=== PATIENT | female | born 1940 | race Hispanic/Latino ===

== ENCOUNTER 2017-05-22 19:53 | Emergency (ER) | payer OTHER, MEDICARE ==
[~2017-05-22 19:53] MED LIST: ALBU8.5H8 IH; ASPI-1181 PO; DILT180C88 PO; MULT-1203 PO; NITR0.4T SL; OMEP20TA25 PO; SIMV40TA59 PO; SOLI5 PO; TIOT18CA3 IH
[2017-05-22 20:37] LABS: BASOPHILS % (AUTO) 2.8 % (0.0-5.0); EOSINOPHILS % (AUTO) 1.9 % (0.0-8.0); HEMATOCRIT 39.4 % (36-48); LYMPHOCYTES % (AUTO) 15.2 % (21.0-51.0); MEAN CORPUSCULAR HEMOGLOBIN 31.6 pg (27.0-33.0); MEAN CORPUSCULAR HGB CONC 34.4 g/dL (32.0-36.0); MEAN CORPUSCULAR VOLUME 91.9 fL (79-99); MONOCYTES % (AUTO) 7.3 % (3.0-13.0); NEUTROPHILS % (AUTO) 72.8 % (40.0-77.0); PLATELET COUNT (AUTO) 200 K/uL (130-400); RED BLOOD CELL COUNT(AUTO) 4.29 MIL/uL (4.00-5.50); RED CELL DISTRIBUTION WIDTH 14.2 % (11.0-15.5); WHITE BLOOD COUNT (AUTO) 6.3 K/uL (4.8-10.8)
[2017-05-22 20:41] LABS: APPEARANCE,URINE Clear (CLEAR); BILIRUBIN,URINE Negative (NEGATIVE); COLOR,URINE Yellow (YELLOW); GLUCOSE, URINE (UA) Negative (NEGATIVE); KETONES,URINE Negative (NEGATIVE); LEUKOCYTE ESTERASE ,URINE Negative (NEGATIVE); NITRATE,URINE Negative (NEGATIVE); OCCULT BLOOD,URINE Negative (NEGATIVE); PROTEIN,URINE Negative (NEGATIVE); UROBILINOGEN,URINE 0.2 mg/dL (0.2-1.0)
[2017-05-22] MEDS ORDERED: ACETAMINOPHEN EXTRA STRENGTH 500 MG TABLET ONE (20:42)
[2017-05-22 20:55] LABS: INR 1.01 (0.85-1.15); PARTIAL THROMBOPLASTIN TIME 25.2 SEC (26.3-35.5); PROTHROMBIN TIME 10.6 SEC (9.6-11.6)
[2017-05-22 20:59] LABS: CARBON DIOXIDE 27 mmol/L (21-32); CHLORIDE 98 mmol/L (101-111); GLOMERULAR FILTR. RATE CALC 57 mL/min (>60); GLUCOSE,RANDOM 111 mg/dL (70-105); POTASSIUM 4.3 mmol/L (3.5-5.1); SODIUM SERUM 134 mmol/L (136-145); UREA NITROGEN, BLOOD 11 mg/dL (7-18)
[2017-05-22] MEDS ORDERED: ALBUTEROL SULFATE 0.083% 2.5 MG/3 ML INH IH ONE (21:07)
[2017-05-22 21:13] LABS: ALANINE AMINOTRANSFERASE 16 U/L (12-78); ALBUMIN 3.6 g/dL (3.5-5.0); ASPARTATE AMINOTRANSFERASE 20 U/L (10-37); BILIRUBIN,TOTAL 0.3 mg/dL (0.2-1.0); CREATINE KINASE MB < 0.5 ng/mL (0.5-3.6); CREATINE KINASE, TOTAL 45 U/L (21-232); MYOGLOBIN 42 ng/mL (10-92); TOTAL PROTEIN, SERUM 8.3 g/dL (6.0-8.3); TROPONIN I < 0.04 ng/mL (0.00-0.06)
[2017-05-22] MEDS ORDERED: LEVOFLOXACIN 500 MG TABLET ONE (23:43)
== END 2017-05-22 23:57 | disposition home or self-care (01) ==
LOC: EDH 19:53
DX: J20.9 Acute bronchitis, unspecified (principal); R50.9 Fever, unspecified; E78.5 Hyperlipidemia, unspecified; I10 Essential (primary) hypertension; I25.10 Atherosclerotic heart disease of native coronary artery without angina pectoris; J45.909 Unspecified asthma, uncomplicated; R79.1 Abnormal coagulation profile; Z88.0 Allergy status to penicillin; Z90.49 Acquired absence of other specified parts of digestive tract; Z98.890 Other specified postprocedural states
CPT/HCPCS: 36415; 71045; 80053; 81003; 82550; 82553; 83605; 83874; 84484; 85025; 85610; 85730; 87040; 87088; 87186; 87804; 93005; 96360; 96361

== ENCOUNTER 2017-06-27 14:46 | Emergency (ER) | payer OTHER, MEDICARE ==
[2017-06-27 17:05] LABS: BASOPHILS % (AUTO) 0.5 % (0.0-5.0); EOSINOPHILS % (AUTO) 0.2 % (0.0-8.0); HEMATOCRIT 41.5 % (36-48); LYMPHOCYTES % (AUTO) 15.4 % (21.0-51.0); MEAN CORPUSCULAR HEMOGLOBIN 31.6 pg (27.0-33.0); MEAN CORPUSCULAR HGB CONC 34.3 g/dL (32.0-36.0); MEAN CORPUSCULAR VOLUME 92.2 fL (79-99); MONOCYTES % (AUTO) 6.8 % (3.0-13.0); NEUTROPHILS % (AUTO) 77.1 % (40.0-77.0); PLATELET COUNT (AUTO) 254 K/uL (130-400); RED CELL DISTRIBUTION WIDTH 14.8 % (11.0-15.5); WHITE BLOOD COUNT (AUTO) 12.4 K/uL (4.8-10.8)
[2017-06-27] MEDS ORDERED: ORPHENADRINE CITRATE 30 MG/ML ML ONE (17:09)
[2017-06-27 17:15] LABS: CREATININE 0.7 mg/dL (0.5-1.5); POTASSIUM 4.4 mmol/L (3.5-5.1)
[2017-06-27 18:20] LABS: APPEARANCE,URINE Clear (CLEAR); BILIRUBIN,URINE Negative (NEGATIVE); COLOR,URINE Yellow (YELLOW); GLUCOSE, URINE (UA) Negative (NEGATIVE); KETONES,URINE Negative (NEGATIVE); LEUKOCYTE ESTERASE ,URINE Negative (NEGATIVE); NITRATE,URINE Negative (NEGATIVE); OCCULT BLOOD,URINE Negative (NEGATIVE); PH,URINE 7.5 (5.0-8.0); PROTEIN,URINE Negative (NEGATIVE)
== END 2017-06-27 19:05 | disposition home or self-care (01) ==
LOC: EDH 14:46
DX: M48.56XA Collapsed vertebra, not elsewhere classified, lumbar region, initial encounter for fracture (principal); J45.909 Unspecified asthma, uncomplicated; I25.10 Atherosclerotic heart disease of native coronary artery without angina pectoris; E78.5 Hyperlipidemia, unspecified; I10 Essential (primary) hypertension; Z88.0 Allergy status to penicillin
CPT/HCPCS: 36415; 71045; 72131; 80048; 81003; 85025; 96374; 99285; J2360

== ENCOUNTER 2017-07-11 03:27 | Inpatient (IN) | payer OTHER, MEDICARE ==
[~2017-07-11] VITALS: Ht 154.9 cm; Wt 80.7 kg
[2017-07-11] VITALS (23 sets, daily range): BP systolic 100–145; BP diastolic 45–81
[2017-07-11] MEDS ORDERED: MORPHINE SULFATE 4 MG/1ML SYG ONE (04:05)
[2017-07-11] MEDS ORDERED: PROMETHAZINE HCL 25 MG/ML 1ML AMPULE IM ONE (04:05)
[2017-07-11] MEDS ORDERED: SODIUM CHLORIDE 0.9% 500ML 500 ML IV ONE (04:06)
[2017-07-11 04:09] LABS: BASOPHILS % (AUTO) 0.6 % (0.0-5.0); EOSINOPHILS % (AUTO) 0.7 % (0.0-8.0); HEMATOCRIT 40.4 % (36-48); LYMPHOCYTES % (AUTO) 13.3 % (21.0-51.0); MEAN CORPUSCULAR HEMOGLOBIN 31.8 pg (27.0-33.0); MEAN CORPUSCULAR HGB CONC 34.3 g/dL (32.0-36.0); MEAN CORPUSCULAR VOLUME 92.7 fL (79-99); MONOCYTES % (AUTO) 3.4 % (3.0-13.0); PLATELET COUNT (AUTO) 211 K/uL (130-400); RED BLOOD CELL COUNT(AUTO) 4.35 MIL/uL (4.00-5.50); RED CELL DISTRIBUTION WIDTH 15.5 % (11.0-15.5); WHITE BLOOD COUNT (AUTO) 13.8 K/uL (4.8-10.8)
[2017-07-11 04:11] LABS: POTASSIUM 3.9 mmol/L (3.5-5.1)
[2017-07-11 04:16] LABS: ALBUMIN 3.2 g/dL (3.5-5.0); BILIRUBIN,TOTAL 0.8 mg/dL (0.2-1.0); TOTAL PROTEIN, SERUM 6.8 g/dL (6.0-8.3)
[2017-07-11] MEDS ORDERED: MEROPENEM 1 GM VIAL ONE (04:22)
[2017-07-11] MEDS ORDERED: WATER FOR INJECTION,STERILE 20 ML VIAL ONE (04:22)
[2017-07-11] MEDS ORDERED: SODIUM CHLORIDE 0.9% 1000ML 1,000 ML IV ONE ×2 (05:10→06:35)
[2017-07-11 05:17] LABS: APPEARANCE,URINE Clear (CLEAR); BILIRUBIN,URINE Negative (NEGATIVE); COLOR,URINE Yellow (YELLOW); GLUCOSE, URINE (UA) 250 mg/dL (NEGATIVE); KETONES,URINE Negative (NEGATIVE); LEUKOCYTE ESTERASE ,URINE Trace (NEGATIVE); NITRATE,URINE Negative (NEGATIVE); OCCULT BLOOD,URINE Negative (NEGATIVE); PH,URINE 7.5 (5.0-8.0); PROTEIN,URINE Negative (NEGATIVE)
[2017-07-11 05:38] LABS: BACTERIA,URINE None Seen /HPF (None Seen); RBC,URINE None Seen /HPF (0-1); SQUAMOUS EPITHELIAL CELL,UR Few /LPF (0-2); WBC,URINE 0-1 /HPF (0-1)
[2017-07-11] MEDS ORDERED: MORPHINE SULFATE 2 MG/ML 1ML SYG IVP PRN (06:45)
[2017-07-11] MEDS ORDERED: ONDANSETRON HCL 4 MG/2 ML VIAL IVP PRN (06:45)
[2017-07-11] MEDS: SODIUM CHLORIDE 0.9% 1000ML 1,000 ML IV SCH ×2 (06:45→18:11)
[2017-07-11] MEDS ORDERED: ONDANSETRON HCL 4 MG/2 ML VIAL IV PRN ×2 (07:00→11:00)
[2017-07-11] MEDS ORDERED: MORPHINE SULFATE 2 MG/ML 1ML SYG ONE (07:44)
[2017-07-11] MEDS: FAMOTIDINE/PF 20 MG/2 ML VIAL IV SCH ×2 (09:00→21:01)
[2017-07-11] MEDS ORDERED: FOLI-103 PO (10:07)
[2017-07-11] MEDS ORDERED: ATOR20TA65 PO (10:07)
[2017-07-11] MEDS ORDERED: UMEC62.5 IH (10:07)
[2017-07-11] MEDS ORDERED: OMEP40CA37 PO (10:07)
[2017-07-11] MEDS ORDERED: FURO20TA4 PO (10:07)
[2017-07-11] MEDS ORDERED: TYL3 PO (10:07)
[2017-07-11] MEDS ORDERED: OMAL150V SQ (10:07)
[2017-07-11] MEDS ORDERED: CALC600T12 PO (10:07)
[2017-07-11] MEDS ORDERED: ADAL10SY SQ (10:07)
[2017-07-11] MEDS ORDERED: LORA1TAB3 PO (10:07)
[2017-07-11] MEDS ORDERED: HYDR2TAB5 PO (10:07)
[2017-07-11] MEDS ORDERED: OMEG-116 PO (10:07)
[2017-07-11] MEDS ORDERED: MOME13HF2 IH (10:07)
[2017-07-11] MEDS ORDERED: LACTATED RINGERS 1000ML 1,000 ML IV ONE (10:27)
[2017-07-11] MEDS ORDERED: GUAIFENESIN-DM 200/20 MG 10 ML PO PRN (11:00)
[2017-07-11] MEDS: METRONIDAZOLE 500MG/100ML BAG 100 ML IV SCH ×4 (11:00→21:03)
[2017-07-11] MEDS ORDERED: MAG HYDROX/AL HYDROX/SIMETH ES 30 ML SUSP UDCUP PO PRN (11:00)
[2017-07-11] MEDS ORDERED: LACTULOSE 20 GM/30 ML UDCUP PO PRN (11:00)
[2017-07-11] MEDS ORDERED: ACETAMINOPHEN 325 MG TAB PO PRN ×2 (11:00)
[2017-07-11] MEDS ORDERED: MEROPENEM 500MG+NS 50ML 50 ML IV SCH (11:00)
[2017-07-11] MEDS ORDERED: NITROGLYCERIN 0.4 MG SL TAB SL PRN (11:00)
[2017-07-11] MEDS: MEROPENEM 500 MG VIAL IVP SCH ×2 (11:15→21:01)
[2017-07-11] MEDS ORDERED: LIDOCAINE PF 2% 5ML ABBOJECT ONE (11:25)
[2017-07-11] MEDS ORDERED: PROPOFOL 10 MG/ML 20ML VIAL IV ONE (11:25)
[2017-07-11] MEDS ORDERED: DEXAMETHASONE SOD PHOSPHATE 10MG/ML 1ML VIAL ONE ×2 (11:25→13:22)
[2017-07-11] MEDS ORDERED: SUCCINYLCHOLINE 200MG/10ML SYR ONE (11:25)
[2017-07-11] MEDS ORDERED: NEOSTIGMINE 5MG/5ML SYR IV ONE (11:25)
[2017-07-11] MEDS ORDERED: MIDAZOLAM HCL 1 MG/ML 2ML VIAL ONE (11:25)
[2017-07-11] MEDS ORDERED: GLYCOPYRROLATE 0.2 MG/ML 5 ML VIAL ONE ×2 (11:25→13:22)
[2017-07-11] MEDS ORDERED: FENTANYL CITRATE PF 50 MCG/1 ML 2ML VIAL ONE ×3 (11:27→13:07)
[2017-07-11] MEDS ORDERED: CALDOLOR 800MG+NS 250ML 250 ML IV ONE (11:53)
[2017-07-11] MEDS ORDERED: ONDANSETRON HCL 4 MG/2 ML VIAL ONE ×2 (11:54→13:22)
[2017-07-11] MEDS ORDERED: BACITRACIN 50,000 UNIT VIAL ONE ×2 (12:10)
[2017-07-11] MEDS ORDERED: BUPIVACAINE/PF 0.25% 30ML VIAL IJ ONE (13:08)
[2017-07-11] MEDS ORDERED: LIDOCAINE HCL/EPINEPHRINE 50 ML VIAL IJ ONE (13:08)
[2017-07-11] MEDS ORDERED: SUCCINYLCHOLINE CHLORIDE 20 MG/ML 10 ML VIAL ONE (13:21)
[2017-07-11] MEDS ORDERED: LIDOCAINE HCL 4% LTA SOL 4 ML VIAL ONE (13:21)
[2017-07-11] MEDS ORDERED: ROCURONIUM BROMIDE 10MG/1ML 5ML VL ONE (13:21)
[2017-07-11] MEDS ORDERED: NEOSTIGMINE METHYLSULFATE 1MG/ML IV ONE (13:21)
[2017-07-11] MEDS ORDERED: MEPERIDINE-PF 25 MG/ML SYG ONE (13:59)
[2017-07-11] MEDS: MORPHINE SULFATE 4 MG/1ML SYG IV PRN ×2 (16:05→21:02)
[2017-07-12] VITALS: BP 113/58
[2017-07-12] MEDS: SODIUM CHLORIDE 0.9% 1000ML 1,000 ML IV SCH ×3 (00:37→18:29)
[2017-07-12] MEDS: MORPHINE SULFATE 4 MG/1ML SYG IV PRN ×5 (02:28→20:57)
[2017-07-12] MEDS: METRONIDAZOLE 500MG/100ML BAG 100 ML IV SCH ×3 (03:00→18:28)
[2017-07-12] MEDS: MEROPENEM 500 MG VIAL IVP SCH ×4 (03:15→18:28)
[2017-07-12 04:00] VITALS: BP 114/60
[2017-07-12 04:00] LABS: HEMATOCRIT 32.5 % (36-48); MEAN CORPUSCULAR HGB CONC 36.4 g/dL (32.0-36.0); MEAN CORPUSCULAR VOLUME 93.4 fL (79-99); PLATELET COUNT (AUTO) 161 K/uL (130-400); RED BLOOD CELL COUNT(AUTO) 3.48 MIL/uL (4.00-5.50); RED CELL DISTRIBUTION WIDTH 16.1 % (11.0-15.5); WHITE BLOOD COUNT (AUTO) 9.9 K/uL (4.8-10.8)
[2017-07-12 04:15] LABS: CREATININE 0.7 mg/dL (0.5-1.5); POTASSIUM 4.6 mmol/L (3.5-5.1)
[2017-07-12] MEDS ORDERED: ONDANSETRON HCL MDV 20ML 2 MG/ML VIAL ONE (05:18)
[2017-07-12 08:00] VITALS: BP 118/60
[2017-07-12] MEDS: FAMOTIDINE/PF 20 MG/2 ML VIAL IV SCH ×2 (09:25→20:55)
[2017-07-12 11:00] VITALS: BP 131/61
[2017-07-12 16:00] VITALS: BP 140/77
[2017-07-12 20:00] VITALS: BP 136/70
[2017-07-13] VITALS (7 sets, daily range): BP systolic 124–142; BP diastolic 54–73
[2017-07-13] MEDS: MORPHINE SULFATE 4 MG/1ML SYG IV PRN ×3 (02:04→12:33)
[2017-07-13] MEDS: METRONIDAZOLE 500MG/100ML BAG 100 ML IV SCH ×3 (02:05→18:24)
[2017-07-13] MEDS: MEROPENEM 500 MG VIAL IVP SCH ×3 (02:05→18:23)
[2017-07-13 04:57] LABS: HEMATOCRIT 31.5 % (36-48); MEAN CORPUSCULAR HEMOGLOBIN 32.4 pg (27.0-33.0); MEAN CORPUSCULAR HGB CONC 35.1 g/dL (32.0-36.0); MEAN CORPUSCULAR VOLUME 92.3 fL (79-99); PLATELET COUNT (AUTO) 161 K/uL (130-400); RED BLOOD CELL COUNT(AUTO) 3.41 MIL/uL (4.00-5.50); RED CELL DISTRIBUTION WIDTH 15.7 % (11.0-15.5)
[2017-07-13 05:06] LABS: CREATININE 0.8 mg/dL (0.5-1.5); PHOSPHORUS 2.4 mg/dL (2.5-4.9); POTASSIUM 3.9 mmol/L (3.5-5.1)
[2017-07-13] MEDS ORDERED: MORPHINE SULFATE 4 MG/1ML SYG IV PRN (08:30)
[2017-07-13] MEDS: ENOXAPARIN SODIUM 40 MG/0.4 ML SYRINGE SQ SCH (10:06)
[2017-07-13] MEDS: FAMOTIDINE/PF 20 MG/2 ML VIAL IV SCH ×2 (10:06→20:12)
[2017-07-13] MEDS: SODIUM CHLORIDE 0.9% 1000ML 1,000 ML IV SCH ×2 (11:14→23:00)
[2017-07-13] MEDS: ONDANSETRON HCL MDV 20ML 2 MG/ML VIAL IV PRN (14:41)
[2017-07-13] MEDS: MORPHINE SULFATE 2 MG/ML 1ML SYG IV PRN ×3 (18:24→23:16)
[2017-07-13] MEDS: IPRATROPIUM/ALBUTEROL SULFATE 3 ML SOLUTION IH SCH (18:31)
[2017-07-14] MEDS: METRONIDAZOLE 500MG/100ML BAG 100 ML IV SCH ×3 (02:44→19:31)
[2017-07-14] MEDS: MEROPENEM 500 MG VIAL IVP SCH ×3 (02:44→19:31)
[2017-07-14] MEDS: MORPHINE SULFATE 2 MG/ML 1ML SYG IV PRN ×6 (02:44→23:32)
[2017-07-14 04:36] LABS: HEMATOCRIT 31.8 % (36-48); MEAN CORPUSCULAR HEMOGLOBIN 33.2 pg (27.0-33.0); MEAN CORPUSCULAR HGB CONC 36.5 g/dL (32.0-36.0); NUCLEATED RED BLOOD CELLS 0.1 % (0.0-0.19); PLATELET COUNT (AUTO) 173 K/uL (130-400); RED BLOOD CELL COUNT(AUTO) 3.49 MIL/uL (4.00-5.50); RED CELL DISTRIBUTION WIDTH 15.4 % (11.0-15.5); WHITE BLOOD COUNT (AUTO) 6.6 K/uL (4.8-10.8)
[2017-07-14 04:42] LABS: CREATININE 0.7 mg/dL (0.5-1.5); POTASSIUM 3.7 mmol/L (3.5-5.1)
[2017-07-14] MEDS: IPRATROPIUM/ALBUTEROL SULFATE 3 ML SOLUTION IH SCH ×3 (04:44→18:28)
[2017-07-14 04:46] VITALS: BP 118/63
[2017-07-14 08:12] VITALS: BP 114/61
[2017-07-14] MEDS: ONDANSETRON HCL MDV 20ML 2 MG/ML VIAL IV PRN ×2 (09:24→16:16)
[2017-07-14] MEDS: FAMOTIDINE/PF 20 MG/2 ML VIAL IV SCH ×2 (11:02→20:20)
[2017-07-14 12:00] VITALS: BP 147/72
[2017-07-14] MEDS ORDERED: KETOROLAC TROMETHAMINE 30MG/ML ONE (12:00)
[2017-07-14] MEDS ORDERED: MORPHINE SULFATE 4 MG/1ML SYG IV PRN (12:00)
[2017-07-14 16:00] VITALS: BP 126/70
[2017-07-14] MEDS: SODIUM CHLORIDE 0.9% 1000ML 1,000 ML IV SCH (16:23)
[2017-07-14 19:35] VITALS: BP 126/54
[2017-07-14 23:05] VITALS: BP 131/75
[2017-07-15] MEDS: IPRATROPIUM/ALBUTEROL SULFATE 3 ML SOLUTION IH SCH ×5 (01:23→23:34)
[2017-07-15] MEDS: MEROPENEM 500 MG VIAL IVP SCH ×3 (02:21→19:25)
[2017-07-15] MEDS: METRONIDAZOLE 500MG/100ML BAG 100 ML IV SCH ×3 (02:21→19:25)
[2017-07-15 03:29] VITALS: BP 120/58
[2017-07-15] MEDS: MORPHINE SULFATE 2 MG/ML 1ML SYG IV PRN ×4 (03:52→20:45)
[2017-07-15 07:13] LABS: HEMATOCRIT 32.5 % (36-48); MEAN CORPUSCULAR HEMOGLOBIN 33.2 pg (27.0-33.0); MEAN CORPUSCULAR HGB CONC 35.6 g/dL (32.0-36.0); MEAN CORPUSCULAR VOLUME 93.2 fL (79-99); PLATELET COUNT (AUTO) 164 K/uL (130-400); RED BLOOD CELL COUNT(AUTO) 3.49 MIL/uL (4.00-5.50); RED CELL DISTRIBUTION WIDTH 15.7 % (11.0-15.5); WHITE BLOOD COUNT (AUTO) 6.3 K/uL (4.8-10.8)
[2017-07-15 07:25] LABS: CREATININE 0.7 mg/dL (0.5-1.5); POTASSIUM 4.1 mmol/L (3.5-5.1)
[2017-07-15] MEDS ORDERED: LORAZEPAM 1 MG TABLET PO PRN (07:45)
[2017-07-15 08:00] VITALS: BP 134/61
[2017-07-15] MEDS: SODIUM CHLORIDE 0.9% 1000ML 1,000 ML IV SCH (08:30)
[2017-07-15] MEDS: FAMOTIDINE/PF 20 MG/2 ML VIAL IV SCH ×2 (08:30→20:41)
[2017-07-15] MEDS: ENOXAPARIN SODIUM 40 MG/0.4 ML SYRINGE SQ SCH ×2 (08:32→09:00)
[2017-07-15] MEDS: DULERA PO SCH (08:32)
[2017-07-15] MEDS: ONDANSETRON HCL MDV 20ML 2 MG/ML VIAL IV PRN (08:39)
[2017-07-15 12:00] VITALS: BP 133/65
[2017-07-15] MEDS: KETOROLAC TROMETHAMINE 30MG/ML IV PRN ×2 (12:15→19:25)
[2017-07-15 16:00] VITALS: BP 129/64
[2017-07-15 19:40] VITALS: BP 136/74
[2017-07-15 23:36] VITALS: BP 133/60
[2017-07-16] MEDS: MORPHINE SULFATE 2 MG/ML 1ML SYG IV PRN ×4 (00:43→20:18)
[2017-07-16] MEDS: SODIUM CHLORIDE 0.9% 1000ML 1,000 ML IV SCH (00:45)
[2017-07-16] MEDS: MEROPENEM 500 MG VIAL IVP SCH ×3 (03:01→20:17)
[2017-07-16] MEDS: METRONIDAZOLE 500MG/100ML BAG 100 ML IV SCH ×3 (03:01→20:17)
[2017-07-16 04:04] VITALS: BP 130/62
[2017-07-16] MEDS: IPRATROPIUM/ALBUTEROL SULFATE 3 ML SOLUTION IH SCH ×3 (06:30→18:47)
[2017-07-16 08:00] VITALS: BP 140/64
[2017-07-16] MEDS: FAMOTIDINE/PF 20 MG/2 ML VIAL IV SCH ×2 (08:24→20:17)
[2017-07-16] MEDS: ENOXAPARIN SODIUM 40 MG/0.4 ML SYRINGE SQ SCH (08:25)
[2017-07-16] MEDS: DULERA PO SCH (08:25)
[2017-07-16] MEDS: ACETAMINOPHEN-CODEINE 300/30MG TAB PO PRN (08:26)
[2017-07-16 12:00] VITALS: BP 136/68
[2017-07-16] MEDS: KETOROLAC TROMETHAMINE 30MG/ML IV PRN (15:29)
[2017-07-16 16:00] VITALS: BP 136/62
[2017-07-16 19:35] VITALS: BP 147/60
[2017-07-17] MEDS: IPRATROPIUM/ALBUTEROL SULFATE 3 ML SOLUTION IH SCH ×4 (00:31→18:22)
[2017-07-17] MEDS: MORPHINE SULFATE 2 MG/ML 1ML SYG IV PRN ×2 (00:42→05:10)
[2017-07-17 01:47] VITALS: BP 140/74
[2017-07-17 03:50] VITALS: BP 124/63
[2017-07-17 03:51] LABS: HEMATOCRIT 33.7 % (36-48); MEAN CORPUSCULAR HGB CONC 34.7 g/dL (32.0-36.0); PLATELET COUNT (AUTO) 199 K/uL (130-400); RED BLOOD CELL COUNT(AUTO) 3.66 MIL/uL (4.00-5.50); RED CELL DISTRIBUTION WIDTH 15.9 % (11.0-15.5)
[2017-07-17 04:18] LABS: CREATININE 0.6 mg/dL (0.5-1.5); POTASSIUM 3.5 mmol/L (3.5-5.1)
[2017-07-17] MEDS: MEROPENEM 500 MG VIAL IVP SCH ×3 (05:09→21:02)
[2017-07-17] MEDS: METRONIDAZOLE 500MG/100ML BAG 100 ML IV SCH ×3 (05:10→21:15)
[2017-07-17 08:00] VITALS: BP 134/70
[2017-07-17] MEDS: FAMOTIDINE/PF 20 MG/2 ML VIAL IV SCH ×2 (08:23→21:02)
[2017-07-17] MEDS: DULERA PO SCH (08:23)
[2017-07-17] MEDS: KETOROLAC TROMETHAMINE 30MG/ML IV PRN ×2 (08:24→17:36)
[2017-07-17] MEDS: ENOXAPARIN SODIUM 40 MG/0.4 ML SYRINGE SQ SCH (08:24)
[2017-07-17 11:43] VITALS: BP 134/71
[2017-07-17 16:00] VITALS: BP 113/64
[2017-07-17 20:44] VITALS: BP 125/65
[2017-07-18] MEDS: KETOROLAC TROMETHAMINE 30MG/ML IV PRN ×3 (00:28→23:18)
[2017-07-18 00:33] VITALS: BP 121/80
[2017-07-18] MEDS: IPRATROPIUM/ALBUTEROL SULFATE 3 ML SOLUTION IH SCH ×4 (00:36→19:23)
[2017-07-18] MEDS: MEROPENEM 500 MG VIAL IVP SCH ×3 (04:25→19:04)
[2017-07-18] MEDS: METRONIDAZOLE 500MG/100ML BAG 100 ML IV SCH ×3 (04:26→19:04)
[2017-07-18] MEDS: MORPHINE SULFATE 2 MG/ML 1ML SYG IV PRN ×2 (04:39→09:31)
[2017-07-18 04:40] VITALS: BP 109/65
[2017-07-18 08:00] VITALS: BP 131/63
[2017-07-18] MEDS: DULERA PO SCH (09:00)
[2017-07-18] MEDS: FAMOTIDINE/PF 20 MG/2 ML VIAL IV SCH ×2 (09:12→20:00)
[2017-07-18] MEDS: ENOXAPARIN SODIUM 40 MG/0.4 ML SYRINGE SQ SCH (09:17)
[2017-07-18 12:00] VITALS: BP 119/69
[2017-07-18] MEDS: ACETAMINOPHEN-CODEINE 300/30MG TAB PO PRN ×2 (13:02→18:14)
[2017-07-18 16:00] VITALS: BP 119/59
[2017-07-18 20:00] VITALS: BP 100/56
[2017-07-19 00:10] VITALS: BP 106/58
[2017-07-19] MEDS: IPRATROPIUM/ALBUTEROL SULFATE 3 ML SOLUTION IH SCH ×4 (00:10→19:00)
[2017-07-19] MEDS: METRONIDAZOLE 500MG/100ML BAG 100 ML IV SCH ×3 (02:57→21:49)
[2017-07-19] MEDS: MEROPENEM 500 MG VIAL IVP SCH ×3 (02:57→21:48)
[2017-07-19 04:13] VITALS: BP 104/48
[2017-07-19] MEDS: ACETAMINOPHEN-CODEINE 300/30MG TAB PO PRN ×3 (06:16→18:45)
[2017-07-19 08:00] VITALS: BP 128/60
[2017-07-19] MEDS: DULERA PO SCH (09:00)
[2017-07-19] MEDS: FAMOTIDINE/PF 20 MG/2 ML VIAL IV SCH ×2 (09:41→21:48)
[2017-07-19] MEDS: ENOXAPARIN SODIUM 40 MG/0.4 ML SYRINGE SQ SCH (09:43)
[2017-07-19 12:00] VITALS: BP 106/50
[2017-07-19 16:00] VITALS: BP 107/54
[2017-07-19 19:35] VITALS: BP 132/62
[2017-07-20] MEDS: IPRATROPIUM/ALBUTEROL SULFATE 3 ML SOLUTION IH SCH ×3 (00:02→11:05)
[2017-07-20 00:05] VITALS: BP 129/72
[2017-07-20] MEDS: ACETAMINOPHEN-CODEINE 300/30MG TAB PO PRN ×2 (01:59→11:03)
[2017-07-20] MEDS: METRONIDAZOLE 500MG/100ML BAG 100 ML IV SCH ×2 (03:32→11:10)
[2017-07-20] MEDS: MEROPENEM 500 MG VIAL IVP SCH ×2 (03:32→11:10)
[2017-07-20 03:55] VITALS: BP 107/56
[2017-07-20 06:29] LABS: HEMATOCRIT 28.8 % (36-48); MEAN CORPUSCULAR HEMOGLOBIN 33.9 pg (27.0-33.0); MEAN CORPUSCULAR VOLUME 91.6 fL (79-99); PLATELET COUNT (AUTO) 243 K/uL (130-400); RED BLOOD CELL COUNT(AUTO) 3.14 MIL/uL (4.00-5.50); RED CELL DISTRIBUTION WIDTH 16.2 % (11.0-15.5); WHITE BLOOD COUNT (AUTO) 5.4 K/uL (4.8-10.8)
[2017-07-20 08:00] VITALS: BP 135/64
[2017-07-20] MEDS: DULERA PO SCH (09:00)
[2017-07-20] MEDS: FAMOTIDINE/PF 20 MG/2 ML VIAL IV SCH (09:32)
[2017-07-20] MEDS: ENOXAPARIN SODIUM 40 MG/0.4 ML SYRINGE SQ SCH (09:34)
[2017-07-20 12:00] VITALS: BP 111/57
[2017-07-20 16:00] VITALS: BP 123/60
[2017-07-20] MEDS ORDERED: MAGNESIUM CITRATE 296 ML SOLUTION PO SCH (17:15)
== END 2017-07-20 18:20 | DRG 330 ==
LOC: EDH 03:27 → EDHIP 06:30 → OBSVTOIN 06:30 → 3AH 09:14
PROVIDERS: ADMIT Internal Medicine; ATTEND Internal Medicine
PROC: 0D1N0Z4 Bypass Sigmoid Colon to Cutaneous, Open Approach (ICD-10-PCS; principal; 2017-07-11 11:35)
PROC: 0DTN0ZZ Resection of Sigmoid Colon, Open Approach (ICD-10-PCS; 2017-07-11 11:35)
DX: K57.20 Diverticulitis of large intestine with perforation and abscess without bleeding (principal); M06.9 Rheumatoid arthritis, unspecified; E66.9 Obesity, unspecified; E78.5 Hyperlipidemia, unspecified; I10 Essential (primary) hypertension; I25.10 Atherosclerotic heart disease of native coronary artery without angina pectoris; J45.909 Unspecified asthma, uncomplicated; Z96.653 Presence of artificial knee joint, bilateral; Z95.1 Presence of aortocoronary bypass graft; Z68.33 Body mass index [BMI] 33.0-33.9, adult; Z88.0 Allergy status to penicillin; Z91.040 Latex allergy status; Z83.3 Family history of diabetes mellitus; Z82.5 Family history of asthma and other chronic lower respiratory diseases; Z82.49 Family history of ischemic heart disease and other diseases of the circulatory system; Z82.3 Family history of stroke; Z82.0 Family history of epilepsy and other diseases of the nervous system
CPT/HCPCS: 36415; 71045; 74021; 74176; 80048; 80053; 81001; 82150; 82948; 83605; 83690; 83735; 84100; 84484; 85025; 85027; 87040; 88307; 93005; 94640; 94664; 97039; 99291; A4218; A5073; J0330; J1100; J1650; J1741; J1885; J2001; J2175; J2185; J2250; J2270; J2405; J2550; J2704; J2710; J3010; J3490; J7030; J7040; J7120

== ENCOUNTER 2017-10-02 14:25 | Emergency (ER) | payer OTHER, MEDICARE ==
[~2017-10-02 14:25] MED LIST changes: +ADAL10SY SQ; +ATOR20TA65 PO; +CALC600T12 PO; -DILT180C88 PO; +FOLI-103 PO; +FURO20TA4 PO; +LORA1TAB3 PO; +MOME13HF2 IH; +OMAL150V SQ; +OMEG-116 PO; -OMEP20TA25 PO; +OMEP40CA37 PO; -SOLI5 PO; -TIOT18CA3 IH; +TYL3 PO; +UMEC62.5 IH
[2017-10-02 14:49] LABS: APPEARANCE,URINE Turbid (CLEAR); BILIRUBIN,URINE Negative (NEGATIVE); COLOR,URINE Yellow (YELLOW); GLUCOSE, URINE (UA) Negative (NEGATIVE); KETONES,URINE Trace mg/dL (NEGATIVE); LEUKOCYTE ESTERASE ,URINE Large (NEGATIVE); NITRATE,URINE Negative (NEGATIVE); OCCULT BLOOD,URINE Small (NEGATIVE); PROTEIN,URINE Negative (NEGATIVE); UROBILINOGEN,URINE 0.2 mg/dL (0.2-1.0)
[2017-10-02 15:17] LABS: BASOPHILS % (AUTO) 0.3 % (0.0-5.0); EOSINOPHILS % (AUTO) 0.7 % (0.0-8.0); HEMATOCRIT 33.7 % (36-48); LYMPHOCYTES % (AUTO) 26.9 % (21.0-51.0); MEAN CORPUSCULAR HEMOGLOBIN 32.5 pg (27.0-33.0); MEAN CORPUSCULAR HGB CONC 34.5 g/dL (32.0-36.0); MEAN CORPUSCULAR VOLUME 94.4 fL (79-99); MONOCYTES % (AUTO) 7.9 % (3.0-13.0); NEUTROPHILS % (AUTO) 64.2 % (40.0-77.0); NUCLEATED RED BLOOD CELLS 0.1 % (0.0-0.19); PLATELET COUNT (AUTO) 317 K/uL (130-400); RED BLOOD CELL COUNT(AUTO) 3.57 MIL/uL (4.00-5.50); RED CELL DISTRIBUTION WIDTH 14.1 % (11.0-15.5); WHITE BLOOD COUNT (AUTO) 8.6 K/uL (4.8-10.8)
[2017-10-02 15:18] LABS: BACTERIA,URINE Few /HPF (None Seen); RBC,URINE None Seen /HPF (0-1); SQUAMOUS EPITHELIAL CELL,UR None Seen /HPF (0-2); TRANSITIONAL EPI CELLS,URINE Few /HPF (None Seen); WBC,URINE >100 /HPF (0-1)
[2017-10-02 15:28] LABS: CREATININE 0.7 mg/dL (0.5-1.5); POTASSIUM 3.5 mmol/L (3.5-5.1)
[2017-10-02 15:32] LABS: ALBUMIN 3.3 g/dL (3.5-5.0); BILIRUBIN,TOTAL 0.4 mg/dL (0.2-1.0); TOTAL PROTEIN, SERUM 7.3 g/dL (6.0-8.3)
[2017-10-02] MEDS ORDERED: IOPAMIDOL-370 75 ML VIAL IV ONE (15:43)
== END 2017-10-02 17:29 | disposition home or self-care (01) ==
LOC: EDH 14:25
DX: N39.0 Urinary tract infection, site not specified (principal); J45.909 Unspecified asthma, uncomplicated; I25.10 Atherosclerotic heart disease of native coronary artery without angina pectoris; E78.5 Hyperlipidemia, unspecified; I11.0 Hypertensive heart disease with heart failure; I50.9 Heart failure, unspecified; Z88.0 Allergy status to penicillin; Z90.49 Acquired absence of other specified parts of digestive tract; Z90.710 Acquired absence of both cervix and uterus; Z98.890 Other specified postprocedural states
CPT/HCPCS: 36415; 74177; 80053; 81001; 85025; 87088; 87186; 99285; Q9967

== ENCOUNTER → 2017-10-18 | Outpatient (CLI) | payer OTHER, MEDICARE ==
[~2017-10-18] MED LIST changes: +LIDOCAINE/PRILOCAINE CREAM 5GM TUBE TP ONE
[2017-10-18 12:01] VITALS: BP 153/71
== END | disposition home or self-care (01) ==
LOC: WHH 10:45
PROVIDERS: ATTEND Surgery
DX: I83.028 Varicose veins of left lower extremity with ulcer other part of lower leg (principal); L97.821 Non-pressure chronic ulcer of other part of left lower leg limited to breakdown of skin; I11.0 Hypertensive heart disease with heart failure; I50.9 Heart failure, unspecified; E78.5 Hyperlipidemia, unspecified; J45.909 Unspecified asthma, uncomplicated; I25.10 Atherosclerotic heart disease of native coronary artery without angina pectoris; Z87.891 Personal history of nicotine dependence; Z90.710 Acquired absence of both cervix and uterus; Z96.653 Presence of artificial knee joint, bilateral
CPT/HCPCS: 11042; A6021

== ENCOUNTER → 2017-10-23 | Outpatient (CLI) | payer OTHER, MEDICARE ==
[~2017-10-23] MED LIST changes: -LIDOCAINE/PRILOCAINE CREAM 5GM TUBE TP ONE
== END | disposition home or self-care (01) ==
LOC: WHH 09:45
PROVIDERS: ATTEND Surgery
DX: I83.028 Varicose veins of left lower extremity with ulcer other part of lower leg (principal); L97.821 Non-pressure chronic ulcer of other part of left lower leg limited to breakdown of skin; I11.0 Hypertensive heart disease with heart failure; I50.9 Heart failure, unspecified; E78.5 Hyperlipidemia, unspecified; J45.909 Unspecified asthma, uncomplicated; I25.10 Atherosclerotic heart disease of native coronary artery without angina pectoris; Z87.891 Personal history of nicotine dependence; Z90.710 Acquired absence of both cervix and uterus; Z96.653 Presence of artificial knee joint, bilateral
CPT/HCPCS: 93922; G0463

== ENCOUNTER → 2017-10-25 | Outpatient (CLI) | payer OTHER, MEDICARE ==
[~2017-10-25] MED LIST changes: +LIDOCAINE/PRILOCAINE CREAM 5GM TUBE TP ONE
[2017-10-25 13:35] VITALS: BP 142/79
== END | disposition home or self-care (01) ==
LOC: WHH 10:00
PROVIDERS: ATTEND Surgery
DX: I83.028 Varicose veins of left lower extremity with ulcer other part of lower leg (principal); L97.821 Non-pressure chronic ulcer of other part of left lower leg limited to breakdown of skin; I11.0 Hypertensive heart disease with heart failure; I50.9 Heart failure, unspecified; E78.5 Hyperlipidemia, unspecified; J45.909 Unspecified asthma, uncomplicated; I25.10 Atherosclerotic heart disease of native coronary artery without angina pectoris; Z87.891 Personal history of nicotine dependence; Z90.710 Acquired absence of both cervix and uterus; Z96.653 Presence of artificial knee joint, bilateral
CPT/HCPCS: 11042; J3490

== ENCOUNTER → 2017-10-30 | Outpatient (CLI) | payer OTHER, MEDICARE ==
[~2017-10-30] MED LIST changes: -LIDOCAINE/PRILOCAINE CREAM 5GM TUBE TP ONE
== END | disposition home or self-care (01) ==
LOC: WHH 11:30
PROVIDERS: ATTEND Surgery
DX: I83.028 Varicose veins of left lower extremity with ulcer other part of lower leg (principal); L97.821 Non-pressure chronic ulcer of other part of left lower leg limited to breakdown of skin; I11.0 Hypertensive heart disease with heart failure; I50.9 Heart failure, unspecified; E78.5 Hyperlipidemia, unspecified; J45.909 Unspecified asthma, uncomplicated; I25.10 Atherosclerotic heart disease of native coronary artery without angina pectoris; Z87.891 Personal history of nicotine dependence; Z90.710 Acquired absence of both cervix and uterus; Z96.653 Presence of artificial knee joint, bilateral
CPT/HCPCS: 93923; G0463

== ENCOUNTER → 2017-11-01 | Outpatient (CLI) | payer OTHER, MEDICARE ==
[~2017-11-01] MED LIST changes: +LIDOCAINE/PRILOCAINE CREAM 5GM TUBE TP ONE
[2017-11-01 13:48] VITALS: BP 128/58
== END | disposition home or self-care (01) ==
LOC: WHH 10:30
PROVIDERS: ATTEND Surgery
DX: I83.028 Varicose veins of left lower extremity with ulcer other part of lower leg (principal); L97.821 Non-pressure chronic ulcer of other part of left lower leg limited to breakdown of skin; I25.10 Atherosclerotic heart disease of native coronary artery without angina pectoris; E78.5 Hyperlipidemia, unspecified; I11.0 Hypertensive heart disease with heart failure; I50.9 Heart failure, unspecified; J45.909 Unspecified asthma, uncomplicated; Z90.49 Acquired absence of other specified parts of digestive tract; Z90.710 Acquired absence of both cervix and uterus; Z96.653 Presence of artificial knee joint, bilateral; Z87.891 Personal history of nicotine dependence
CPT/HCPCS: 11042; A6021; J3490

== ENCOUNTER → 2017-11-08 | Outpatient (CLI) | payer OTHER, MEDICARE ==
[~2017-11-08] MED LIST changes: -LIDOCAINE/PRILOCAINE CREAM 5GM TUBE TP ONE
[2017-11-08 13:37] VITALS: BP 145/53
== END | disposition home or self-care (01) ==
LOC: WHH 10:45
PROVIDERS: ATTEND Surgery
DX: I83.028 Varicose veins of left lower extremity with ulcer other part of lower leg (principal); L97.821 Non-pressure chronic ulcer of other part of left lower leg limited to breakdown of skin; I25.10 Atherosclerotic heart disease of native coronary artery without angina pectoris; E78.5 Hyperlipidemia, unspecified; I11.0 Hypertensive heart disease with heart failure; I50.9 Heart failure, unspecified; J45.909 Unspecified asthma, uncomplicated; Z90.49 Acquired absence of other specified parts of digestive tract; Z90.710 Acquired absence of both cervix and uterus; Z96.653 Presence of artificial knee joint, bilateral; Z87.891 Personal history of nicotine dependence
CPT/HCPCS: 15271; A6196; A6207; Q4133

== ENCOUNTER 2018-04-20 21:26 | Emergency (ER) | payer OTHER, MEDICARE ==
[2018-04-20] MEDS ORDERED: ACETAMINOPHEN 325 MG TAB ONE (22:10)
== END 2018-04-21 00:12 | disposition home or self-care (01) ==
LOC: EDH 21:26
DX: S63.591A Other specified sprain of right wrist, initial encounter (principal); S80.01XA Contusion of right knee, initial encounter; R60.9 Edema, unspecified; J45.909 Unspecified asthma, uncomplicated; I25.10 Atherosclerotic heart disease of native coronary artery without angina pectoris; I11.0 Hypertensive heart disease with heart failure; I50.9 Heart failure, unspecified; E78.5 Hyperlipidemia, unspecified; F41.9 Anxiety disorder, unspecified; Z88.0 Allergy status to penicillin; Z90.49 Acquired absence of other specified parts of digestive tract; Z90.710 Acquired absence of both cervix and uterus; Z87.891 Personal history of nicotine dependence; W10.8XXA Fall (on) (from) other stairs and steps, initial encounter; Y93.89 Activity, other specified; Y92.89 Other specified places as the place of occurrence of the external cause; Y99.8 Other external cause status
CPT/HCPCS: 73110; 73562

== ENCOUNTER 2018-06-26 08:03 | Day surgery (SDC) | payer OTHER, MEDICARE ==
[~2018-06-26] VITALS: Ht 149.9 cm; Wt 80.3 kg
[~2018-06-26 08:03] MED LIST changes: -ADAL10SY SQ; -ALBU8.5H8 IH; -CALC600T12 PO; +CYAN1TAB44 PO; -FOLI-103 PO; -LORA1TAB3 PO; -MOME13HF2 IH; +OLOP30.5 NS; -OMEG-116 PO; +RANO500T3 PO; -SIMV40TA59 PO; +SODIUM CHLORIDE 0.9% 1000ML 1,000 ML IV ONE; -TYL3 PO; -UMEC62.5 IH
[2018-06-26 08:37] VITALS: BP 126/71
[2018-06-26] MEDS ORDERED: IPRATROPIUM/ALBUTEROL SULFATE 3 ML SOLUTION IH ONE (09:28)
[2018-06-26] MEDS ORDERED: IPRATROPIUM/ALBUTEROL SULFATE 3 ML SOLUTION IH SCH (09:30)
[2018-06-26] MEDS ORDERED: ALBUTEROL (09:40)
[2018-06-26] MEDS ORDERED: PROPOFOL 10 MG/ML 20ML VIAL IV ONE (09:57)
[2018-06-26] MEDS ORDERED: LIDOCAINE HCL 1% 20 ML VIAL ONE (09:58)
[2018-06-26 10:14] VITALS: BP 87/32
[2018-06-26 10:20] VITALS: BP 87/52
[2018-06-26 10:25] VITALS: BP 98/40
[2018-06-26 10:45] VITALS: BP 121/37
--- NOTE | 2018-06-26 11:20 | NUR ---
PT TOLERATED PROCEDURE WELL , NO C/P PAIN, ILEOSTOMY WAS NOT ATTACHED, WAS LEAKING, ILEOSTOMY BAG CHANGED OUT IN GI RECOVERY. POST CARE INSTRUCTIONS GIVEN TO PT AND DAUGHTER, BOTH VERBALIZED UNDERSTANDING. PT ASSISTED TO BEDSIDE AND DRESSED, PT TAKEN OUT IN WHEELCHAIR, DRIVEN HOME BY DAUGHTER. PERSONAL BELONGINGS AND WALKER TAKEN TO CAR.
== END 2018-06-26 11:20 | disposition home or self-care (01) ==
LOC: DAH 08:03 → ENDO 08:03
PROVIDERS: ATTEND Internal Medicine
DX: Z12.11 Encounter for screening for malignant neoplasm of colon (principal); D12.2 Benign neoplasm of ascending colon; D12.3 Benign neoplasm of transverse colon; E78.5 Hyperlipidemia, unspecified; I10 Essential (primary) hypertension; J44.9 Chronic obstructive pulmonary disease, unspecified; F41.9 Anxiety disorder, unspecified; F32.9 Major depressive disorder, single episode, unspecified; M19.90 Unspecified osteoarthritis, unspecified site; M81.0 Age-related osteoporosis without current pathological fracture; Z93.2 Ileostomy status; Z68.31 Body mass index [BMI] 31.0-31.9, adult; Z98.890 Other specified postprocedural states; Z95.5 Presence of coronary angioplasty implant and graft; Z98.49 Cataract extraction status, unspecified eye; Z79.899 Other long term (current) drug therapy; I25.10 Atherosclerotic heart disease of native coronary artery without angina pectoris; Z88.0 Allergy status to penicillin
CPT/HCPCS: 45385; 88305; 93005; 94640; A4606; J2704; J7030

== ENCOUNTER 2018-07-10 15:07 | Emergency (ER) | payer OTHER, MEDICARE ==
[~2018-07-10 15:07] MED LIST changes: +ALBUTEROL; -SODIUM CHLORIDE 0.9% 1000ML 1,000 ML IV ONE
== END 2018-07-10 17:25 | disposition home or self-care (01) ==
LOC: EDH 15:07
DX: M48.56XA Collapsed vertebra, not elsewhere classified, lumbar region, initial encounter for fracture (principal); R10.9 Unspecified abdominal pain; R29.890 Loss of height; F41.9 Anxiety disorder, unspecified; J45.909 Unspecified asthma, uncomplicated; I25.10 Atherosclerotic heart disease of native coronary artery without angina pectoris; I11.0 Hypertensive heart disease with heart failure; I50.9 Heart failure, unspecified; E78.5 Hyperlipidemia, unspecified; Z90.49 Acquired absence of other specified parts of digestive tract; Z90.710 Acquired absence of both cervix and uterus; Z88.0 Allergy status to penicillin
CPT/HCPCS: 72131

== ENCOUNTER 2018-08-25 20:14 | Emergency (ER) | payer OTHER, MEDICARE ==
[2018-08-25 20:47] LABS: APPEARANCE,URINE Clear (CLEAR); BILIRUBIN,URINE Negative (NEGATIVE); COLOR,URINE Yellow (YELLOW); GLUCOSE, URINE (UA) Negative (NEGATIVE); KETONES,URINE 15 mg/dL (NEGATIVE); LEUKOCYTE ESTERASE ,URINE Large (NEGATIVE); NITRATE,URINE Negative (NEGATIVE); OCCULT BLOOD,URINE Nonhemolyzed Trace (NEGATIVE); PH,URINE 6.5 (5.0-8.0); PROTEIN,URINE Negative (NEGATIVE)
[2018-08-25 20:57] LABS: BACTERIA,URINE Moderate /HPF (None Seen); MUCUS,URINE Few LPF (None Seen); RBC,URINE 0-1 /HPF (0-1); SQUAMOUS EPITHELIAL CELL,UR 0-2 /HPF (0-2); WBC,URINE >100 /HPF (0-1)
[2018-08-25 21:06] LABS: HEMATOCRIT 39.8 % (36-48); LYMPHOCYTES % (AUTO) 29.8 % (21.0-51.0); MEAN CORPUSCULAR HEMOGLOBIN 33.5 pg (27.0-33.0); MEAN CORPUSCULAR HGB CONC 34.9 g/dL (32.0-36.0); MONOCYTES % (AUTO) 7.8 % (3.0-13.0); NEUTROPHILS % (AUTO) 60.4 % (40.0-77.0); PLATELET COUNT (AUTO) 245 K/uL (130-400); RED BLOOD CELL COUNT(AUTO) 4.15 MIL/uL (4.00-5.50); RED CELL DISTRIBUTION WIDTH 14.6 % (11.0-15.5); WHITE BLOOD COUNT (AUTO) 6.9 K/uL (4.8-10.8)
[2018-08-25 21:25] LABS: B-TYPE NATRIURETIC PEPTIDE 58 pg/mL (0-100); INR 1.02 (0.85-1.15); PARTIAL THROMBOPLASTIN TIME 25.5 SEC (26.3-35.5); PROTHROMBIN TIME 10.7 SEC (9.6-11.6)
[2018-08-25 21:26] LABS: CREATININE 0.7 mg/dL (0.5-1.5); POTASSIUM 3.8 mmol/L (3.5-5.1)
[2018-08-25 21:30] LABS: ALBUMIN 3.7 g/dL (3.5-5.0); BILIRUBIN,TOTAL 0.5 mg/dL (0.2-1.0); TOTAL PROTEIN, SERUM 7.3 g/dL (6.0-8.3)
[2018-08-26] MEDS ORDERED: KETOROLAC TROMETHAMINE 15MG/ML ONE (00:27)
[2018-08-26] MEDS ORDERED: DOXYCYCLINE HYCLATE 100 MG TABLET PO ONE (00:27)
[2018-08-26] MEDS ORDERED: DOCU-272 PO (23:08)
[2018-08-26] MEDS ORDERED: DILT120C47 PO (23:08)
[2018-08-26] MEDS ORDERED: NYST15CR TP (23:08)
[2018-08-26] MEDS ORDERED: ACET1TAB25 PO (23:08)
[2018-08-26] MEDS ORDERED: ALBU90AE IH (23:08)
[2018-08-26] MEDS ORDERED: POTA10TA14 PO (23:08)
[2018-08-26] MEDS ORDERED: HYDR4 PO (23:08)
== END 2018-08-26 00:49 | disposition home or self-care (01) ==
LOC: EDH 20:14
DX: N39.0 Urinary tract infection, site not specified (principal); M54.5 Low back pain; R51 Headache; R21 Rash and other nonspecific skin eruption; J45.909 Unspecified asthma, uncomplicated; E78.5 Hyperlipidemia, unspecified; I25.10 Atherosclerotic heart disease of native coronary artery without angina pectoris; I11.0 Hypertensive heart disease with heart failure; I50.9 Heart failure, unspecified; Z88.0 Allergy status to penicillin; Z91.040 Latex allergy status; Z90.49 Acquired absence of other specified parts of digestive tract; Z90.710 Acquired absence of both cervix and uterus; Z98.890 Other specified postprocedural states; Z87.891 Personal history of nicotine dependence
CPT/HCPCS: 36415; 70450; 71045; 80053; 81001; 82150; 82550; 83690; 83880; 84484; 85025; 85610; 85730; 87077; 87088; 87186; 87804 ×2; 93005; 96374; 99285; J1885

== ENCOUNTER 2018-08-26 13:27 | Observation (INO) | payer OTHER, MEDICARE ==
[~2018-08-26] VITALS: Ht 154.9 cm; Wt 77.5 kg
[2018-08-26] MEDS ORDERED: ONDANSETRON HCL 4 MG/2 ML VIAL ONE ×2 (14:54→22:25)
[2018-08-26 16:19] LABS: APPEARANCE,URINE CLOUDY (CLEAR); BILIRUBIN,URINE NEGATIVE (NEGATIVE); COLOR,URINE YELLOW (YELLOW); GLUCOSE, URINE (UA) NEGATIVE (NEGATIVE); KETONES,URINE 5 mg/dL (NEGATIVE); LEUKOCYTE ESTERASE ,URINE LARGE (NEGATIVE); NITRATE,URINE POSITIVE (NEGATIVE); OCCULT BLOOD,URINE SMALL (NEGATIVE); PROTEIN,URINE TRACE mg/dL (NEGATIVE); UROBILINOGEN,URINE 0.2 mg/dL (0.2-1.0)
[2018-08-26 16:20] LABS: BASOPHILS % (AUTO) 0.4 % (0.0-5.0); HEMATOCRIT 36.7 % (36-48); LYMPHOCYTES % (AUTO) 30.5 % (21.0-51.0); MEAN CORPUSCULAR HEMOGLOBIN 32.6 pg (27.0-33.0); MEAN CORPUSCULAR HGB CONC 34.3 g/dL (32.0-36.0); MONOCYTES % (AUTO) 8.4 % (3.0-13.0); NEUTROPHILS % (AUTO) 59.7 % (40.0-77.0); NUCLEATED RED BLOOD CELLS 0.2 % (0.0-0.19); PLATELET COUNT (AUTO) 247 K/uL (130-400); RED BLOOD CELL COUNT(AUTO) 3.86 MIL/uL (4.00-5.50); RED CELL DISTRIBUTION WIDTH 14.2 % (11.0-15.5); WHITE BLOOD COUNT (AUTO) 6.9 K/uL (4.8-10.8)
[2018-08-26 16:27] LABS: INR 1.03 (0.85-1.15); PARTIAL THROMBOPLASTIN TIME 25.2 SEC (26.3-35.5); PROTHROMBIN TIME 10.8 SEC (9.6-11.6)
[2018-08-26 16:45] LABS: CREATININE 0.7 mg/dL (0.5-1.5); POTASSIUM 3.4 mmol/L (3.5-5.1)
[2018-08-26 16:57] LABS: BACTERIA,URINE Moderate /HPF (None Seen); SQUAMOUS EPITHELIAL CELL,UR Few /HPF (0-2); WBC,URINE >100 /HPF (0-1)
--- NOTE | 2018-08-26 19:53 | NUR ---
ADMISSION. PT TRANSFERRED FROM ER VIA WHEELCHAIR, ACCOMPANIED BY DAUGHTERS. PT AWAKE, ALERT AND RESPONSIVE AT THIS TIME. NO C/O PAIN OR DISCOMFORT. PT AND FAMILY ORIENTED TO ROOM, CALL FRANCO WITHIN REACH. Addendum: 08/26/18 at 2038 by PRINCE HARLEY RN Amended: Links added.
[2018-08-26 20:00] VITALS: BP 145/70
[2018-08-26] MEDS ORDERED: ONDANSETRON HCL 4 MG/2 ML VIAL IVP SCH (21:00)
[2018-08-26] MEDS ORDERED: DIAZEPAM 5 MG TABLET PO PRN (22:15)
[2018-08-26] MEDS ORDERED: KETOROLAC TROMETHAMINE 30MG/ML IV PRN (22:15)
[2018-08-26] MEDS ORDERED: ONDANSETRON HCL 4 MG/2 ML VIAL IVP PRN (22:15)
[2018-08-26] MEDS ORDERED: KETOROLAC TROMETHAMINE 30MG/ML ONE (22:25)
[2018-08-26] MEDS: FAMOTIDINE 20MG TAB 20 MG TAB PO SCH (22:33)
[2018-08-26] MEDS ORDERED: DOCU-272 PO (23:08)
[2018-08-26] MEDS ORDERED: HYDR4 PO (23:08)
[2018-08-26] MEDS ORDERED: NYST15CR TP (23:08)
[2018-08-26] MEDS ORDERED: DILT120C47 PO (23:08)
[2018-08-26] MEDS ORDERED: ALBU90AE IH (23:08)
[2018-08-26] MEDS ORDERED: ACET1TAB25 PO (23:08)
[2018-08-26] MEDS ORDERED: POTA10TA14 PO (23:08)
[2018-08-26 23:58] VITALS: BP 145/70
[2018-08-27 04:19] VITALS: BP 117/55
[2018-08-27 08:00] VITALS: BP 146/60
[2018-08-27] MEDS ORDERED: POTASSIUM CHLORIDE 20MEQ/100ML 100 ML IV PRN (08:30)
[2018-08-27] MEDS ORDERED: POTASSIUM CHLORIDE 10% ELIXIR 20 MEQ/15 ML UDCUP PO PRN (08:30)
[2018-08-27] MEDS ORDERED: POTASSIUM CHLORIDE 20 MEQ ERTAB PO PRN (08:30)
[2018-08-27] MEDS ORDERED: LIDOCAINE HCL-MPF 1% 2ML VIAL IVP PRN (08:30)
[2018-08-27] MEDS: FAMOTIDINE 20MG TAB 20 MG TAB PO SCH ×2 (09:13→20:51)
[2018-08-27] MEDS ORDERED: NITROGLYCERIN 0.4 MG SL TAB SL SCH (09:15)
[2018-08-27] MEDS ORDERED: NYSTATIN 30 GM CREAM.GM. TP PRN (09:15)
[2018-08-27] MEDS ORDERED: FUROSEMIDE 20 MG TABLET PO PRN (09:15)
[2018-08-27] MEDS ORDERED: NYSTATIN 30 GM CREAM.GM. TP SCH (09:22)
[2018-08-27] MEDS ORDERED: NITROGLYCERIN 0.4 MG SL TAB SL PRN (09:30)
[2018-08-27 12:00] VITALS: BP 149/69
[2018-08-27] MEDS: CEFEPIME HCL 1 GM VIAL IVP SCH ×2 (12:33→20:50)
[2018-08-27 16:00] VITALS: BP 121/64
--- NOTE | 2018-08-27 16:00 | NUR ---
EMMETT NAGEL CM spoke to patient and family at bedside. Lives with jessica [place], who will porvide transport home, previosuly semi independent w walker mobility- recent loss of independence 2/2 to compression fracture now needing cefepime 1 gm q 8 x 10 days. Patient and family adamant -does not want to go to a facility AIU script recd. derek hester that going in and out of care for AIU will be very difficult for pt. advised MD order recd to try HH if possible, referral in process. . Addendum: 08/28/18 at 1137 by ZULMA SOFIA RN CM Amended: Links added.
--- NOTE | 2018-08-27 17:15 | NUR ---
RD Notification Patient with UTI. Patient reports improved appetite upon visit. Patient with 75% PO intake with resolved nausea/vomiting. Patient states prefers salt-free, sugar-free diet. Patient LBM 08/26/18. Patient monitored labs: K 3.4. RD to continue to monitor. Please notify RD as nutritional concerns arise. Thank you. Addendum: 08/27/18 at [address] RD Amended: Links added.
--- NOTE | 2018-08-27 17:20 | NUR ---
PLAN IN PROCESS GOT PERMISSION FROM TO ATTEMPT TO GET PT HH W IV ABX; IF NOT, [facility] OF SNF Addendum: 08/28/18 at 1139 by ZULMA SOFIA RN CM Amended: Links added.
[2018-08-27 20:26] VITALS: BP 125/59
[2018-08-27] MEDS: RANOLAZINE 500 MG TAB.SR.12H PO SCH (20:51)
[2018-08-27] MEDS ORDERED: ATORVASTATIN CALCIUM 20 MG TABLET PO SCH (21:00)
[2018-08-27 23:50] VITALS: BP 152/69
[2018-08-28 04:13] VITALS: BP 128/57
[2018-08-28] MEDS: CEFEPIME HCL 1 GM VIAL IVP SCH ×2 (04:21→12:06)
[2018-08-28 05:17] LABS: MEAN CORPUSCULAR HEMOGLOBIN 32.6 pg (27.0-33.0); MEAN CORPUSCULAR HGB CONC 34.4 g/dL (32.0-36.0); MEAN CORPUSCULAR VOLUME 94.9 fL (79-99); PLATELET COUNT (AUTO) 223 K/uL (130-400); RED BLOOD CELL COUNT(AUTO) 3.48 MIL/uL (4.00-5.50); RED CELL DISTRIBUTION WIDTH 14.6 % (11.0-15.5)
[2018-08-28 05:22] LABS: CREATININE 0.8 mg/dL (0.5-1.5); POTASSIUM 3.6 mmol/L (3.5-5.1)
[2018-08-28] MEDS ORDERED: POTASSIUM CHLORIDE 10 MEQ/TAB.SA PO SCH (08:00)
[2018-08-28 08:10] VITALS: BP 128/73
[2018-08-28] MEDS ORDERED: DILTIAZEM HCL 120 MG CAP.SR.24H PO SCH (09:00)
[2018-08-28] MEDS ORDERED: DOCUSATE SODIUM 100 MG CAP PO SCH (09:00)
[2018-08-28] MEDS ORDERED: ASPIRIN 81 MG EC TAB PO SCH (09:00)
[2018-08-28] MEDS: FAMOTIDINE 20MG TAB 20 MG TAB PO SCH (09:46)
[2018-08-28] MEDS: RANOLAZINE 500 MG TAB.SR.12H PO SCH (09:47)
[2018-08-28 11:50] VITALS: BP 119/76
--- NOTE | 2018-08-28 14:30 | NUR ---
DC PLAN CHANGES/OBSTACLES NOT ABLE TO GET AN ANSWER RE HH/ IV ABX PT AND FMAILY ASKED ABOUT SNF, AGREED, REFERRAL SENT TO [place]
[2018-08-28 16:05] VITALS: BP 113/67
--- NOTE | 2018-08-28 16:30 | NUR ---
DCPLAN: FINAL, ACCEPTED AT [facility], N FAMILY AWARE, DR. CHAKRABORTY AWARE
[2018-08-28] MEDS ORDERED: CEFE1VIA11 IVP (17:50)
[2018-08-28] MEDS ORDERED: FAMO20TA8 PO (17:50)
--- NOTE | 2018-08-28 18:30 | NUR ---
DISCHARGE PATIENT GIVEN DISCHARGE INSTRUCTION AND EDUCATION ON FOLLOW UP APPOINTMENTS AND NEW PRESCRIBED MEDICATION. REPORT CALLED TO ATUL BUNCH LVN. NO CONCERN VOICED. ALL QUESTIONS ANSWERED APPROPRIATELY. NO DISTRESS NOTED UPON DISCHARGE. ALL BELONGINGS TAKEN WITH.
== END 2018-08-28 19:22 ==
LOC: EDH 13:27 → EDHIP 14:03 → INTOOBSV 14:03 → 3BH 18:55
PROVIDERS: ADMIT Internal Medicine; ATTEND Internal Medicine
DX: N39.0 Urinary tract infection, site not specified (principal); I25.10 Atherosclerotic heart disease of native coronary artery without angina pectoris; E66.9 Obesity, unspecified; E87.6 Hypokalemia; I10 Essential (primary) hypertension; B96.20 Unspecified Escherichia coli [E. coli] as the cause of diseases classified elsewhere; J44.9 Chronic obstructive pulmonary disease, unspecified; M48.56XA Collapsed vertebra, not elsewhere classified, lumbar region, initial encounter for fracture; T36.8X5A Adverse effect of other systemic antibiotics, initial encounter; Z87.440 Personal history of urinary (tract) infections; Z90.710 Acquired absence of both cervix and uterus; Z90.49 Acquired absence of other specified parts of digestive tract; Z93.3 Colostomy status; Z95.5 Presence of coronary angioplasty implant and graft; Z68.32 Body mass index [BMI] 32.0-32.9, adult; Z79.82 Long term (current) use of aspirin; Z80.9 Family history of malignant neoplasm, unspecified; Z83.3 Family history of diabetes mellitus; Z82.0 Family history of epilepsy and other diseases of the nervous system; Z82.49 Family history of ischemic heart disease and other diseases of the circulatory system; Z96.653 Presence of artificial knee joint, bilateral
CPT/HCPCS: 36415 ×2; 71045; 80048 ×2; 85025; 85027; 85610; 85730; 96374; 96375; 96376 ×2; 97039; 97116 ×2; 97161; 99284; A4218; C1894; G0378 ×53; G8978; G8979; G8980; G8981; G8982; G8983; J0692 ×4; J1885 ×2; J2405 ×2

== ENCOUNTER 2019-04-10 12:31 | Emergency (ER) | payer OTHER, MEDICARE ==
[~2019-04-10 12:31] MED LIST changes: +ACET-66 PO; +ALBU90AE IH; -ALBUTEROL; -CYAN1TAB44 PO; +DILT120C47 PO; +DOCU-272 PO; +FAMO20TA8 PO; +LORA1TAB3 PO; +NAPR-1023 PO; +NYST15CR TP; -OLOP30.5 NS; -OMAL150V SQ; +OMEG-148 PO; +OMEP40CA13 PO; -OMEP40CA37 PO; +POTA10TA14 PO
[2019-04-10] MEDS ORDERED: ONDANSETRON HCL 4 MG/2 ML VIAL ONE (13:07)
[2019-04-10] MEDS ORDERED: ASPIRIN 325MG EC TAB 325 MG TABLET.DR PO ONE (13:07)
[2019-04-10] MEDS ORDERED: SODIUM CHLORIDE 0.9% 500ML 500 ML IV ONE (13:08)
[2019-04-10 13:11] LABS: BASOPHILS % (AUTO) 0.7 % (0.0-5.0); EOSINOPHILS % (AUTO) 2.3 % (0.0-8.0); LYMPHOCYTES % (AUTO) 38.8 % (21.0-51.0); MEAN CORPUSCULAR HEMOGLOBIN 32.3 pg (27.0-33.0); MEAN CORPUSCULAR HGB CONC 34.8 g/dL (32.0-36.0); MEAN CORPUSCULAR VOLUME 92.9 fL (79-99); MONOCYTES % (AUTO) 7.7 % (3.0-13.0); NEUTROPHILS % (AUTO) 50.5 % (40.0-77.0); NUCLEATED RED BLOOD CELLS 0.1 % (0.0-0.19); PLATELET COUNT (AUTO) 182 K/uL (130-400); RED BLOOD CELL COUNT(AUTO) 3.34 MIL/uL (4.00-5.50); RED CELL DISTRIBUTION WIDTH 16.2 % (11.0-15.5); WHITE BLOOD COUNT (AUTO) 5.5 K/uL (4.8-10.8)
[2019-04-10 13:28] LABS: CREATININE 0.8 mg/dL (0.5-1.5); POTASSIUM 3.8 mmol/L (3.5-5.1)
[2019-04-10 13:33] LABS: ALBUMIN 3.4 g/dL (3.5-5.0); BILIRUBIN,TOTAL 0.4 mg/dL (0.2-1.0); TOTAL PROTEIN, SERUM 7.4 g/dL (6.0-8.3)
[2019-04-10 13:35] LABS: B-TYPE NATRIURETIC PEPTIDE 15 pg/mL (0-100)
[2019-04-10 14:30] LABS: APPEARANCE,URINE Clear (CLEAR); BILIRUBIN,URINE Negative (NEGATIVE); COLOR,URINE Yellow (YELLOW); GLUCOSE, URINE (UA) Negative (NEGATIVE); KETONES,URINE Negative (NEGATIVE); LEUKOCYTE ESTERASE ,URINE Negative (NEGATIVE); NITRATE,URINE Negative (NEGATIVE); OCCULT BLOOD,URINE Negative (NEGATIVE); PH,URINE 6.5 (5.0-8.0); PROTEIN,URINE Negative (NEGATIVE); UROBILINOGEN,URINE 0.2 mg/dL (0.2-1.0)
== END 2019-04-10 16:38 | disposition home or self-care (01) ==
LOC: EDH 12:31
DX: R51 Headache (principal); R53.1 Weakness; R11.0 Nausea; J45.909 Unspecified asthma, uncomplicated; I25.10 Atherosclerotic heart disease of native coronary artery without angina pectoris; E78.5 Hyperlipidemia, unspecified; I11.0 Hypertensive heart disease with heart failure; I50.9 Heart failure, unspecified; F41.9 Anxiety disorder, unspecified; Z90.49 Acquired absence of other specified parts of digestive tract; Z87.891 Personal history of nicotine dependence; Z88.0 Allergy status to penicillin; Z91.040 Latex allergy status
CPT/HCPCS: 36415; 70450; 71045; 80053; 81003; 82550; 83880; 84484; 85025; 93005; 96374; 99285; J2405; J7040

== ENCOUNTER → 2019-06-06 | Outpatient (CLI) | payer OTHER, MEDICARE ==
[~2019-06-06] VITALS: Ht 154.9 cm; Wt 67.6 kg
[~2019-06-06] MED LIST changes: +REGADENOSON 0.4 MG/5 ML PF SYG IVP SCH
== END | disposition home or self-care (01) ==
LOC: SHCH 08:21
PROVIDERS: ATTEND Internal Medicine Cardiovascular Disease
DX: R07.9 Chest pain, unspecified (principal)
CPT/HCPCS: 78452; 93017; 96374; A9500; J2785